=== PATIENT | female | born 1990 | race Two or more races ===

== ENCOUNTER → 2018-08-15 | Outpatient (CLI) | payer MEDICAID | LOC: FIMAGING 13:13 | PROVIDERS: ATTEND Student in an Organized Health Care Education/Training Program | DX: O36.5920 Maternal care for other known or suspected poor fetal growth, second trimester, not applicable or unspecified (principal); Z3A.20 20 weeks gestation of pregnancy ==

== ENCOUNTER → 2018-09-02 | Outpatient (CLI) | payer MEDICAID | LOC: FIMAGING 09:19 | PROVIDERS: ATTEND Student in an Organized Health Care Education/Training Program | DX: Z03.79 Encounter for other suspected maternal and fetal conditions ruled out (principal); Z3A.32 32 weeks gestation of pregnancy ==